=== PATIENT | male | born 1995 ===

== ENCOUNTER 2021-11-18 01:46 | Emergency (ER) | payer SELFPAY ==
[2021-11-18] MEDS ORDERED: Sodium Chloride 0.9% 10 ML SDV FLUSH ONE (02:34)
[2021-11-18] MEDS ORDERED: Iopamidol 755 Mg/ML 100 ML Bottle IVPUSH ONE (02:34)
[2021-11-18] MEDS ORDERED: Sodium Chloride 0.9% 100 ML IV SCH (02:45)
== END 2021-11-18 03:32 | disposition home or self-care (01) ==
LOC: JD.ED 01:46
DX: R07.9 Chest pain, unspecified (principal); R04.2 Hemoptysis; Z88.5 Allergy status to narcotic agent; Z88.6 Allergy status to analgesic agent
CPT/HCPCS: 36415; 71275; 71275-26; 80053; 83880; 84484; 85025; 85610; 93005; 99285-25; Q9967